=== PATIENT | female | born 1955 | race Caucasian/White ===

== ENCOUNTER 2021-04-11 07:24 | Observation (INO) ==
--- NOTE | 2021-02-28 15:36 | PAT Medication Instructions ---
Medication Instructions Date of Service February 28, 2021 Home Medications ascorbic acid (vitamin C) [Vitamin C] 1 g PO QAM atorvastatin 40 mg PO QAM calcium carbonate-vitamin D3 [Calcium 600 + D(3)] 1 cap PO BID coQ10 (ubiquinol) 200 mg PO QAM conjugated estrogens [Premarin] 0.625 mg VAGINAL 2XWK cyclosporine [Restasis] 1 drp OPHTHALMIC (EYE) Q12H ibuprofen [Advil] 400 mg PO Q6H PRN mirabegron [Myrbetriq] 25 mg PO QAM Continue as directed conjugated estrogens [Premarin] 0.625 mg VAGINAL 2XWK (unless surgeon directs otherwise) ASK your surgeon for instructions ibuprofen [Advil] 400 mg PO Q6H PRN STOP taking 2 weeks before surgery coQ10 (ubiquinol) 200 mg PO QAM DO NOT take the morning of surgery ascorbic acid (vitamin C) [Vitamin C] 1 g PO QAM calcium carbonate-vitamin D3 [Calcium 600 + D(3)] 1 cap PO BID mirabegron [Myrbetriq] 25 mg PO QAM Take morning of surgery With a small sip of water, OTHERWISE NOTHING TO EAT OR DRINK AFTER MIDNIGHT: atorvastatin 40 mg PO QAM cyclosporine [Restasis] 1 drp OPHTHALMIC (EYE) Q12H Take evening before surgery calcium carbonate-vitamin D3 [Calcium 600 + D(3)] 1 cap PO BID cyclosporine [Restasis] 1 drp OPHTHALMIC (EYE) Q12H Other Notes If you have any questions please call us at [phone] or [phone] or [phone] or [phone]
--- NOTE | 2021-03-05 14:56 | Anesthesiology Consultation ---
Date of Service March 05, 2021 Assessment & Plan (1) Encounter for pre-operative examination: Chart Review Chart Review: Acceptable Risk for Surgery (pending preop Covid testing results ) and Patient seen in Pre Admission Testing Per PAT appointment 03/05/2021, patient [place] in [facility] [place]. Wears mask per [facility] guidelines. Traveled to [place] to visit daughter- returned 02/19/21- did drive. No known Covid positive contacts or Covid related symptoms. No Covid infection in the past 90 days. Pt is vaccinated for Covid. Pt aware of preop Covid testing needed 2-4 days prior to surgery- pt will follow up with surgeon office = will await results. Educated on importance of self quarantining, social distancing and wearing mask in public both for the patient after Covid testing done Teaching & Discussion Pre-Anesthesia Teaching/Discussion Notes: Instructed NPO after midnight before surgery,except medications with 15 cc of water. Medication instructions provided according to the [facility] guidelines. History Surgery Operation Date: 04/11/21 08:00 Proposed Procedures p Mary Total Knee Arthroplasty - Scott Husain DO Height/Weight Height: 5 ft 1 in Weight: 54.8 kg Allergies Allergy/AdvReac Type Severity Reaction Status Date / Time levofloxacin [From Levaquin] AdvReac Unknown BLURRY Verified 02/28/21 14:27 VISION DIZZINESS naproxen AdvReac Unknown SICK TO Verified 02/28/21 14:27 STOMACH Medications Home Medications Medication Instructions Recorded Confirmed Last Taken ascorbic acid (vitamin C) 1,000 mg 1 g PO QAM 02/28/21 02/28/21 Unknown tablet (Vitamin C) atorvastatin 40 mg tablet 40 mg PO QAM 02/28/21 02/28/21 Unknown calcium carbonate-vitamin D3 600 1 cap PO BID 02/28/21 02/28/21 Unknown mg calcium-200 unit capsule (Calcium 600 + D(3)) coQ10 (ubiquinol) 200 mg capsule 200 mg PO QAM 02/28/21 02/28/21 Unknown conjugated estrogens 0.625 mg/gram 0.625 mg VAGINAL 2XWK 02/28/21 02/28/21 Unknown vaginal cream (Premarin) cyclosporine 0.05 % eye drops in a 1 drp OPHTHALMIC (EYE) Q12H 02/28/21 02/28/21 Unknown dropperette (Restasis) ibuprofen 200 mg tablet (Advil) 400 mg PO Q6H PRN 02/28/21 02/28/21 Unknown mirabegron 25 mg tablet,extended 25 mg PO QAM 02/28/21 02/28/21 Unknown release 24 hr (Myrbetriq) Wheeled Walker #1 ea 03/05/21 03/05/21 Unknown Wheeled Walker #1 ea 03/05/21 03/05/21 Unknown Past Medical History Medical History (Updated 03/05/21 @ 15:16 by Jennifer Soria PA-C) Cardiac murmur "HEART CLICK"-NO CARDIOLOGY Noted at age 25 - no longer auscultated per patient No murmur or clicks noted at PAT exam on 03/05/21 Depression Hyperlipidemia Osteoarthritis Overactive bladder Thyroid cyst UNDER OBSERVATION- STABLE IN SIZE Exercise / Class Metabolic Activity II 4-5 Yardwork/Stairs/Walk up hill (one flight of stairs - no chest pain or SOB ) Past Family History Family History Father Family history of reaction to anesthesia AGGRESSIVE POST OP Past Surgical History Surgical History History of bladder surgery History of colonoscopy 2019 History of hysterectomy 2006 Past Anesthesia History No Hx of Anesthesia Complications and No Family Hx of Anesthesia Complications (with exception to father - had confusion and combativeness ) History of PONV No Hx of PONV and No Hx of Motion Sickness Social History Smoking Status: Never smoker Do You Dip or Chew Tobacco: No Hx Alcohol Use: No Hx Substance Use: No Review of Systems Occ indigestion- relieved with Pepcid Patient denies chest pain, shortness of breath, dyspnea on exertion, cough, wheezing, palpitations. No hx of seizures, stroke, ND, apnea/snoring. No hx of blood clots or blood transfusions Physical Exam Vital Signs VITALS BP 135/79 P 70 TEMP 98.3 SP02 98% RESP 16 Constitutional no acute distress ENMT Mouth: no TMJ clicking Thyromental Distance: > or= 3.5 Finger Breadths (3.5) Mallampati Class: III Neck neck extension not limited Respiratory normal respiratory effort; no respiratory distress Auscultation: lungs clear to auscultation bilaterally; no wheezes Cardiovascular Rate/Rhythm: regular rate and regular rhythm Heart Sounds: no murmur Vessels: no carotid bruit Musculoskeletal Spine: no pain with cervical ROM Extremities: extremities normal to inspection Psychiatric Orientation: alert Lab Results Anesthesia Preop Results Results Anesthesia Widget: WBC 6.32 K/uL (4.8-10.8) 03/05/21 Hgb 13.9 g/dL (12.0-16.0) 03/05/21 Hct 41.7 % (37-47) 03/05/21 Plt 279 K/uL (130-400) 03/05/21 Na 140 mmol/L (136-145) 03/05/21 K 3.9 mmol/L (3.5-5.1) 03/05/21 Cl 108 mmol/L (98-107) H 03/05/21 CO2 29 mmol/L (21-32) 03/05/21 BUN 18 mg/dl (7-18) 03/05/21 Creat 0.65 mg/dl (0.6-1.2) 03/05/21 Glucose Level 93 mg/dl (70-99) 03/05/21 PT 9.8 Seconds (9.0-12.0) 03/05/21 PTT 23.4 Seconds (21.0-31.0) 03/05/21 INR 1.0 (0.9-1.1) 03/05/21 Blood Type A Positive 03/05/21 Antibody Screen NEGATIVE 03/05/21 Testing Electrocardiogram Date: 03/05/21 Findings: + NSR @ (69bpm) Normal EKG per cardio. Chest X-Ray Date: 03/05/21 Findings: + NAD here is a calcified granuloma within the left lower lobe.
--- NOTE | 2021-04-10 13:31 | History & Physical Report ---
Date of Service April 10, 2021 Assessment & Plan (1) Osteoarthritis of right knee: We will proceed with a right total knee arthroplasty. Postoperatively she will be started on aspirin for DVT prophylaxis and kept overnight in the hospital for postoperative medical management. She plans to have the hospital arrange home health for her upon discharge. History of Present Illness Chief Complaint: Primary osteoarthritis of the right knee. Primary Care Provider: NO PCP Estee is a pleasant 66-year-old female who is been dealing with chronic worsening right knee pain. X-rays and clinical examination have been diagnostic for advanced osteoarthritis of the right knee. After failing 18 months of conservative treatment, including multiple injections, she has elected proceed with a right total knee arthroplasty.. Allergies Allergy/AdvReac Type Severity Reaction Status Date / Time levofloxacin [From Levaquin] AdvReac Unknown BLURRY Verified 02/28/21 14:27 VISION DIZZINESS naproxen AdvReac Unknown SICK TO Verified 02/28/21 14:27 STOMACH Home Medications Medication Instructions Recorded Confirmed Type ascorbic acid (vitamin C) 1,000 mg 1 g PO QAM 02/28/21 02/28/21 History tablet (Vitamin C) atorvastatin 40 mg tablet 40 mg PO QAM 02/28/21 02/28/21 History calcium carbonate-vitamin D3 600 1 cap PO BID 02/28/21 02/28/21 History mg calcium-200 unit capsule (Calcium 600 + D(3)) coQ10 (ubiquinol) 200 mg capsule 200 mg PO QAM 02/28/21 02/28/21 History conjugated estrogens 0.625 mg/gram 0.625 mg VAGINAL 2XWK 02/28/21 02/28/21 History vaginal cream (Premarin) cyclosporine 0.05 % eye drops in a 1 drp OPHTHALMIC (EYE) Q12H 02/28/21 02/28/21 History dropperette (Restasis) ibuprofen 200 mg tablet (Advil) 400 mg PO Q6H PRN 02/28/21 02/28/21 History mirabegron 25 mg tablet,extended 25 mg PO QAM 02/28/21 02/28/21 History release 24 hr (Myrbetriq) Wheeled Walker #1 ea 03/05/21 03/05/21 Rx Wheeled Walker #1 ea 03/05/21 03/05/21 Rx Past Med/Surg History Medical History Cardiac murmur "HEART CLICK"-NO CARDIOLOGY Noted at age 25 - no longer auscultated per patient No murmur or clicks noted at PAT exam on 03/05/21 Depression Hyperlipidemia Osteoarthritis Overactive bladder Thyroid cyst UNDER OBSERVATION- STABLE IN SIZE Surgical History History of bladder surgery History of colonoscopy 2020 History of hysterectomy 2007 Family History Father Family history of reaction to anesthesia AGGRESSIVE POST OP Social History Smoking Status: Never smoker Second Hand Exposure: Yes (PARENTS SMOKED/SPOUSE SMOKES OUTSIDE); Do You Dip or Chew Tobacco: No; Hx Alcohol Use: No Hx Substance Use: No Preferred Language: Senegalese Communication Ability: Effective Hair Tinter Required: No Beliefs That Will Affect Care: None Current Living Situation: Spouse current occupational status: retired current occupation: RETIRED [employer] MACHINE OPERATOR Other Information That Helps Us Care for You: No Feels Safe at Home: Yes Safety Concerns: Feels Safe At This Time Assistive Devices: Glasses Review of Systems All systems reviewed & are unremarkable except as noted in HPI & below. Physical Exam On physical examination of the right knee, she has a slight varus deformity. She has range of motion from 0 to 120 degrees. She has no instability. She has tenderness palpation of the distal medial femoral condyle and over the medial joint line.. Constitutional WD/WN, vitals as above Eyes PERRL, conjunctivae normal, anicteric sclerae ENMT external ear and nose normal, oropharynx normal Neck trachea midline, no thyromegaly Respiratory normal respiratory effort Cardiovascular RRR, no murmur, no edema Gastrointestinal (Abdomen) normal bowel sounds, soft, nontender, no hepatosplenomegaly Psychiatric A+Ox3, euthymic affect Results & Data Results & Data Laboratory Results . Diagnostic Findings X-rays of the right knee show advanced osteoarthritis with joint space narrowing osteophyte formation and [id number] articulation. PG Care Time/CCT Total # of Minutes Spent Total Time Spent with Patient: Total time spent is greater than 50% in coordination of care (as documented) at patient's floor/unit and/or counseling patient: Coding Level of Care Code None Diagnoses Osteoarthritis of right knee M17.11
[~2021-04-11 07:24] MED LIST: ACETAMINOPHEN 500 MG TAB PO SCH; FAMOTIDINE 20 MG TAB PO SCH; GABAPENTIN 600 MG DOSE PO SCH; LR 500ML BOLUS, THEN 15ML/HR IV SCH; LR 60ML/HR IV SCH; ROPIVACAINE 0.5% HCL/PF 150 MG, BUPIVACAINE 0.75% MPF 20 ML, EPINEPHrine 30MG/30ML (OR ... INSTIL SCH; TRANEXAMIC ACID 1,000 MG **IV Intra-op IV SCH; TRANEXAMIC ACID 1,000 MG **IV Pre-op IV SCH; ceFAZolin 2000MG 2,000 MG/15 ML SYR IV SCH; dexAMETHasone 4 MG TAB PO SCH
[2021-04-11] MEDS ORDERED: ROPIVACAINE 0.5% 5 MG/ML 30 ML VIAL ONE (07:28)
[2021-04-11] MEDS ORDERED: BUPIVACAINE 0.5 % 5 MG/1 ML PF 10ML VIAL ONE (07:29)
[2021-04-11] MEDS ORDERED: MIDAZOLAM HCL 1 MG/ML 2ML VIAL ONE (08:56)
[2021-04-11] MEDS ORDERED: fentaNYL citrate 100 MCG/2 ML VIAL ONE (08:56)
[2021-04-11] MEDS ORDERED: PROPOFOL IV EMULSION 10 MG/ML 20 ML VIAL IV ONE (08:56)
--- NOTE | 2021-04-11 09:17 | History & Physical Bridge Note ---
Date of Service April 11, 2021 History & Physical Bridge Note I have examined the patient, reviewed the History & Physical and in the interval since the performance of the History & Physical I have noted the following changes of clinical significance: no changes noted
--- NOTE | 2021-04-11 09:52 | Anesthesiology Progress Note ---
Date of Service April 11, 2021 Anesthesia Post Procedure Vital Signs Vital Signs: Temp Pulse Resp BP Pulse Ox 04/11/21 08:55 36.6 C 83 18 170/81 H 99 04/11/21 07:55 36.8 C 86 20 140/77 98 Pain Intensity Right Knee: Pain Intensity: 0 Transfer of Care Handoff Completed per policy Notes Mental Status: alert / awake / arousable Patient Amnestic to Procedure: Yes Nausea / Vomiting: adequately controlled Pain: adequately controlled Airway Patency, RR, SpO2: stable & adequate BP & HR: stable & adequate Hydration State: stable & adequate Neuraxial Anesthesia: was administered and sensory block is resolving Anesthetic Complications: no major complications apparent
[2021-04-11] MEDS ORDERED: ORTHO JOINT ANESTHETIC ONE (10:22)
--- NOTE | 2021-04-11 11:28 | Operative Report ---
PG Post Operative Report Pre & Post Diagnosis Operation Date: 04/11/21 09:30 Pre-Op Diagnosis: DJD Right Knee Post-Op Diagnosis: DJD Right Knee I identified the patient and participated in the time-out.: Yes Procedure Operation Date: 04/11/21 09:30 Actual Procedures p Right Total Knee Arthroplasty(Right) - Scott Husain DO Surgeon Scott Husain, Form Builder Helper Scott Sutherland PAC Estimated Blood Loss 10 Findings Consistent with Post-Op Diagnosis Specimens Right femoral and tibial bone Complications none Disposition Disposition: Recovery Room Indications Estee is a pleasant 66-year-old female who is been dealing with chronic increasing right knee pain. X-rays and clinical examination been diagnostic for advanced osteoarthritis of the right knee. After failing conservative treatment, she has elected to proceed with a right total knee arthroplasty. Description of Procedure Implants used: I used a Elliot Persona total knee arthroplasty system with a size 8 narrow femur, C tibia, 29 patella, and a size 13 medial congruent polyethylene bearing. All components were cemented in place with Biomet cement. Estee arrived [facility] for the above procedure. She was seen in the preoperative holding area and the operative extremity was identified and signed. She was given a preoperative antibiotic, TXA, a spinal anesthetic and an adductor nerve block. She was taken back to the operating room and laid on the table in supine position. She was given basic sedation. The operative knee was then prepped and draped in sterile fashion. A timeout was done, and the patient and the operative extremity was properly identified. A midline incision was made directly over the patella. Dissection was taken down to the extensor mechanism. A subvastus arthrotomy was used. The medial retinaculum was released and the fat pad was mostly excised. The knee was flexed and the ACL, PCL, and meniscus were removed. A drill was sent down the center of the femoral canal followed by an intramedullary helene. Off that helene a distal femoral cutting block was placed. 9 mm was resected off the distal femur at 5 of valgus. A posterior referencing AP sizing guide was then placed on the distal femur. The femur measured to be a size 8 narrow. 2 drill holes were placed in 3 of external rotation. A 4-in-1 cutting block was then impacted into place. Anterior, posterior, and chamfer cuts were then made. The proximal tibia was then exposed. An external tibial alignment guide was placed. A tibial cut guide was then anchored in place and the proximal tibia was then resected. The posterior aspect of the knee was then opened up and any additional meniscus fragments and osteophytes were removed. The tibia measured to be a size C. The tibial plate was then placed in the appropriate rotation and the tibia was drilled and punched. Trial components were then placed. I used a size 13 medial congruent polyethylene insert. The knee was brought through a full range of motion and felt to be stable. The peg holes for the femoral component were then drilled. The patella was then everted and 9 mm was resected off the posterior aspect of the patella. The patella measured to be a size 29. 3 peg holes were then drilled. A trial patella was placed. The knee was once again brought through a full range of motion and felt to be stable. Trial components were then removed. The surrounding soft tissues were injected with 100 cc of an orthopedic pain control cocktail. All components were then cemented into place with Biomet cement. The final polyethylene insert was then snapped into place. Once cement was dry the tourniquet was deflated. Hemostasis was obtained. A dilute betadyne lavage was then done for 3 minutes. The joint was then irrigated with normal saline solution. The subvastus arthrotomy was then closed with #1 Vicryl suture. The skin was closed with 2-0 Vicryl, 3-0V lock suture, and ryan. A soft compressive dressing was placed. She was then transferred to a hospital bed and taken to the postanesthesia care unit in stable condition. She tolerated the procedure well. Scott Sutherland PA-C, was present for the entire procedure. He was critical for patient positioning, prepping, draping, retraction exposure, wound closure and application of sterile dressing. I attest to the content of the Intraoperative Record and any orders documented therein. Any exceptions are noted below.
--- NOTE | 2021-04-11 13:08 | XRay Report ---
XR knee RT 1 or 2V routine HISTORY: 66 years-old Female Surgical Post Op right knee total joint arthroplasty COMPARISON: Knee radiographs 03/05/2021 TECHNIQUE: 2 views of the right knee FINDINGS: Right knee total joint arthroplasty with patellar resurfacing. Anterior midline skin ryan are note d along with expected postoperative soft tissue swelling and deep tissue air. No acute fracture, kelechi lignment or unexpected opaque foreign body. IMPRESSION: Right knee total joint arthroplasty with expected postoperative changes. ACT 112: Negative or not required by law. The above report was generated using voice recognition software. It may contain grammatical, syntax o r spelling errors. Electronically signed by: Bari Varghese M.D. 04/11/2021 1:07 PM
[2021-04-11] MEDS ORDERED: ONDANSETRON INJ 2 MG/ML 2 ML VIAL IV PRN (13:22)
[2021-04-11] MEDS ORDERED: NON-FORMULARY MEDICATION (Wheeled Walker misc) SCH ×2 (13:22)
[2021-04-11] MEDS ORDERED: MAGNESIUM HYDROXIDE SUSP 30 ML UDC PO PRN (13:22)
[2021-04-11] MEDS ORDERED: oxyCODONE HCL IR 5 MG TAB (IMMEDIATE RELEASE) PO PRN (13:22)
[2021-04-11] MEDS ORDERED: HYDROmorphone INJ 0.5 MG/0.5 ML SYR IV PRN (13:22)
[2021-04-11] MEDS ORDERED: NALOXONE HCL 0.4 MG/1 ML VIAL/CARP IV PRN (13:22)
[2021-04-11] MEDS ORDERED: bisacodyL 10 MG SUPP PR PRN (13:22)
[2021-04-11] MEDS ORDERED: METOCLOPRAMIDE HCL INJ 5 MG/ML 2 ML VIAL IV PRN (13:22)
[2021-04-11] MEDS: ACETAMINOPHEN 500 MG TAB PO SCH ×2 (14:45→21:13)
[2021-04-11] MEDS: SODIUM CHLORIDE 0.9% 1000ML 1,000 ML IV SCH ×2 (14:46→23:29)
[2021-04-11] MEDS: KETOROLAC TROMETHAMINE 15 MG/ML VIAL IV SCH ×2 (14:46→20:03)
[2021-04-11] MEDS: ceFAZolin 2000MG 2,000 MG/15 ML SYR IV SCH (17:57)
[2021-04-11] MEDS: ASPIRIN 81 MG ECTAB PO SCH (20:03)
[2021-04-11] MEDS: DOCUSATE SODIUM 100 MG CAP PO SCH (20:03)
[2021-04-11] MEDS ORDERED: SENNA 8.6 MG TAB PO SCH (21:00)
[2021-04-12] MEDS: KETOROLAC TROMETHAMINE 15 MG/ML VIAL IV SCH ×2 (01:19→08:14)
[2021-04-12] MEDS: ceFAZolin 2000MG 2,000 MG/15 ML SYR IV SCH (01:19)
[2021-04-12] MEDS: ACETAMINOPHEN 500 MG TAB PO SCH (05:37)
[2021-04-12] MEDS ORDERED: dexAMETHasone 4 MG TAB PO SCH (08:00)
[2021-04-12] MEDS: DOCUSATE SODIUM 100 MG CAP PO SCH (08:14)
[2021-04-12] MEDS: ASPIRIN 81 MG ECTAB PO SCH (08:15)
--- NOTE | 2021-04-12 08:49 | Orthopedic Progress Note ---
Date of Service April 12, 2021 Assessment & Plan (1) Status post right knee replacement: Overall she is doing very well. She is not having much pain in the right knee. She will be seen by physical therapy today for ambulation and range of motion exercises. She can be discharged home later today. She will follow-up with orthopedics in 2 weeks. She is currently on aspirin for DVT prophylaxis. Ana Fontanez was seen and examined at bedside this morning. Overall she is doing very well. She is having much pain in the right knee. She has been up and ambulating. She has no complaints.. Review of Systems All systems reviewed & are unremarkable except as noted in HPI & below. Physical Exam On physical examination of the right knee, the dressing is clean and dry. Her leg is out full extension. She has active dorsiflexion plantarflexion of her right ankle. Sensation is intact throughout.. Results & Data Results & Data Laboratory Results . Diagnostic Findings Postoperative x-rays of the right knee show the prosthesis to be in anatomic alignment without any evidence of fracture, desiccation, or loosening. PG Care Time/CCT Total # of Minutes Spent Total Time Spent with Patient: Total time spent is greater than 50% in coordination of care (as documented) at patient's floor/unit and/or counseling patient: Coding Level of Care Code 85339 Post Operative Follow-Up Diagnoses Status post right knee replacement Z96.651
--- NOTE | 2021-04-12 08:50 | Discharge Summary ---
Date of Service April 12, 2021 Admission HPI (Per Admitting) Estee is a pleasant 66-year-old female who is been dealing with chronic worsening right knee pain. X-rays and clinical examination have been diagnostic for advanced osteoarthritis of the right knee. After failing 18 months of conservative treatment, including multiple injections, she has elected proceed with a right total knee arthroplasty.. Admission Exam (Per Admitting) On physical examination of the right knee, she has a slight varus deformity. She has range of motion from 0 to 120 degrees. She has no instability. She has tenderness palpation of the distal medial femoral condyle and over the medial joint line.. Principal Diagnosis Same as "Discharge Diagnosis" noted below under Discharge Instructions. Discharge Exam On physical examination of the right knee, the dressing is clean and dry. Her leg is out full extension. She has active dorsiflexion plantarflexion of her right ankle. Sensation is intact throughout.. Discharge Data Procedures Performed Operation Date: 04/11/21 09:30 Actual Procedures p Right Total Knee Arthroplasty(Right) - Scott Husain DO Ordered Studies 04/11/21 05:00 US - OR guided needle placemen Routine Hospital Course (1) Status post right knee replacement: On April 11, 2021 Estee arrived at [facility] and underwent a right knee replacement without complication. She had a spinal anesthetic. Postoperatively she was started on aspirin for DVT prophylaxis and transferred to the general orthopedic floors. Her hospital course was uneventful. On postop day #1 her vital signs were stable and her pain was well controlled. She was able to participate well with physical therapy doing ambulation and range of motion exercises. She can be discharged to home. She will follow-up with orthopedics in 2 weeks. PG Care Time/CCT Total # of Minutes Spent Total Time Spent with Patient: Total time spent is greater than 50% in coordination of care (as documented) at patient's floor/unit and/or counseling patient: Discharge Plan Discharge Items Patient Disposition: Home - Home Health Services Reason For Visit: DJD Right Knee Discharge Diagnosis: Right knee replacement Activity: As commented below Non-emergency contact: Surgeon Call non-emergency contact if: your wound has increased redness and your wound has increased drainage Follow-up/Referrals: PCP,NO [Primary Care Provider] - Diet: Regular Addtl Attending Provider Instructions: Activity and Therapy Recommendations: * If you are using [facility] then therapy will be provided at your home until they feel you have accomplished all of your goals. * If you are using [facility] then Physical Therapy will be provided until they feel you are ready to start Outpatient Physical Therapy. * If you are not using home therapy then Outpatient Physical Therapy should start about 3-5 days from your day of surgery. Therapy will last about 6-10 weeks * It is important not to put a pillow under your knee when you are relaxing or sleeping. It is just as important to make sure you are getting your knee perfectly straight as it is to regain your knee bend. * You were shown a series of exercises in the hospital. Do these exercises three times each day including the exercises you were shown in physical therapy. * Get up and walk several times each day. For the first four weeks, try not to stand or walk for more than one hour at a time. If you do stand or walk for more than one hour, you will not hurt anything, but your leg will likely swell. * As you feel comfortable, you may change from the walker or crutches to a cane and then to independent walking. Medications: * Narcotic You will likely be sent home from the hospital with a prescription for the narcotic pain medication that worked best throughout your stay. * Aspirin Most patients will be required to take Aspirin 81mg twice a day for 6 weeks after surgery. This is obtained [id number] and a prescription is not necessary. * Other medications may be prescribed for specific circumstances. If you have any questions, please call the office at . * Resume previous home medications unless otherwise instructed TEDs/Elastic Stockings: The white elastic stockings help limit swelling and prevent blood clots from forming in your legs.~ The more you wear them, the more they work. Wear them for six weeks. Dressing Care: The dressing can be changed after physical therapy on postop day #1. Daily dry dressing changes for a few days, especially if the incision is still draining some. If the incision is not draining then you may leave the ryan open to air. If there is a little bit of drainage or if the ryan are getting stuck on your clothing then cover the incision with a dry dressing. The ryan will be removed at your 2 week follow-up appointment. Showering: You may shower 5 days from the day of surgery as long as the incision is no longer draining. You may shower with the ryan exposed. Let soapy water run over the ryan and pat them dry. Do not scrub or soak the incision. Things To Watch For: * Drainage from the incision site that occurs more than one week after your surgery. * Increased redness at the incision site. * Fever above 102 degrees Fahrenheit. * Unusual chest pain or shortness of breath. * Call [facility] at with any of the above problems Follow-Up Visit: Follow-up with Dr. Husain's PA (Scott Sutherland) 2-3 weeks after your day of surgery. He will remove your ryan and answer any questions. If you have any additional questions or concerns, Dr Husain is usually in the office at the same time and will be available An appointment was probably scheduled when you signed-up for surgery in the office. If you have any questions call Office Instructions: More detailed instructions as well as Frequently Asked Questions were provided in a folder by our office when you signed-up for surgery. Please review these instructions when you get home. If you have any further questions or concerns, please feel free to call the office at [phone] Pending Studies at Discharge: No Stand-Alone Forms: [facility], Smoking Cessation Medications and DC Order Prescriptions: New oxycodone-acetaminophen 5-325 mg tablet 1 tab PO Q6H PRN (Reason: pain) Qty: 40 RF: 0 aspirin 81 mg Tablet,Delayed Release (Dr/Ec) 81 mg PO BID 42 Days Qty: 84 RF: 0 Continued (DME) Wheeled Walker Misc See Rx Instructions .MEDSUPPLY Qty: 1 RF: 0 (DME) Wheeled Walker Misc See Rx Instructions .MEDSUPPLY Qty: 1 RF: 0 atorvastatin 40 mg Tablet 40 mg PO QAM RF: 0 Premarin 0.625 mg/gram Cream 0.625 mg VAGINAL 2XWK RF: 0 Restasis 0.05 % Dropperette 1 drp OPHTHALMIC (EYE) Q12H RF: 0 Myrbetriq 25 mg Tablet Extended Release 24 Hr 25 mg PO QAM RF: 0 ascorbic acid (vitamin C) [Vitamin C] 1,000 mg Tablet 1 g PO QAM RF: 0 ibuprofen [Advil] 200 mg Tablet 400 mg PO Q6H PRN (Reason: Pain) RF: 0 Calcium 600 + D(3) 600 mg calcium- 200 unit Capsule 1 cap PO BID RF: 0 coQ10 (ubiquinol) 200 mg Capsule 200 mg PO QAM RF: 0 Discharge Orders: Discharge Order (Routine); Ordered 04/12/21 Ordered By: Scott Husain Admission Data Admit Date/Time: 04/11/21 11:55 Attending Provider: Scott Husain Admit Provider: Scott Husain Primary Care Provider: PCP,NO
[2021-04-12] MEDS ORDERED: MULTIVITAMIN TAB PO SCH (09:00)
[2021-04-12] MEDS ORDERED: MIRABEGRON ER 25 MG TAB PO SCH (09:00)
[2021-04-12] MEDS ORDERED: ATORVASTATIN 40 MG TAB PO SCH (09:00)
== END 2021-04-12 12:45 | disposition home health service (06) ==
LOC: 3E 07:24 → ASU 07:24